=== PATIENT | female | born 2000 | race Two or more races ===

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

== ENCOUNTER 2021-09-14 10:44 | Emergency (ER) | payer MEDICAID, OTHER ==
[~2021-09-14] VITALS: Ht 147.3 cm; Wt 62.0 kg
[2021-09-14 10:56] VITALS: BP 113/93
[2021-09-14 12:34] LABS: METHADONE URINE SCREEN NEGATIVE (NEGATIVE)
[2021-09-14 12:35] LABS: *AMPHETAMINES SCREEN URINE NEGATIVE (NEGATIVE); *BARBITURATES SCREEN URINE NEGATIVE (NEGATIVE); *BENZODIAZEPINES SCREEN URINE NEGATIVE (NEGATIVE); OPIATES URINE SCREEN NEGATIVE (NEGATIVE)
[2021-09-14 12:37] LABS: *COCAINE SCREEN URINE NEGATIVE (NEGATIVE); PHENCYCLIDINE URINE SCREEN NEGATIVE (NEGATIVE)
[2021-09-14 12:40] LABS: CANNABINOID URINE SCREEN PRESUMTIVE POSITIVE (NEGATIVE)
== END 2021-09-14 13:32 | disposition home or self-care (01) ==
LOC: ER 10:44
DX: Z02.83 Encounter for blood-alcohol and blood-drug test (principal); F12.90 Cannabis use, unspecified, uncomplicated
CPT/HCPCS: 80305; 99283